=== PATIENT | female | born 1955 | race Hispanic/Latino ===

== ENCOUNTER 2023-11-04 08:13 | Day surgery (SDC) | payer MEDICARE ==
[2023-11-03 15:22] VITALS: BMI 42.2
[2023-11-04 08:58] LABS: Anion Gap 22 mmol/L (10-20); BUN (Urea Nitrogen) 38 mg/dL (9.8-20.1); Calc. Creatinine Clearance 48 mL/min (70-130); Calcium 8.6 mg/dL (7.8-10.44); Carbon Dioxide 11 mmol/L (23-31); Chloride 105 mmol/L (98-107); Estimated GFR 33; Glucose 130 mg/dL (80-115); Potassium 5.2 mmol/L (3.5-5.1); Sodium 133 mmol/L (136-145)
[2023-11-04] MEDS ORDERED: Bupivacaine HCl 0.5%/Epinephrine 1:200,000/PF 30 ml Vial ONE (09:27)
[2023-11-04] MEDS ORDERED: ePHEDrine Sulfate 50 MG/10 ML VIAL ONE (10:04)
[2023-11-04] MEDS ORDERED: PROPOFOL 20 ML ONE (10:04)
[2023-11-04] MEDS ORDERED: Ondansetron PF 4 MG/2 ML Vial ONE ×2 (10:08→11:35)
[2023-11-04] MEDS ORDERED: Dexamethasone 4 mg/ml Vial ONE (10:08)
[2023-11-04] MEDS ORDERED: Lidocaine 2% PF 5 ML VIAL ONE (10:08)
[2023-11-04] MEDS ORDERED: NOREPINEPHRINE 8 MG/250 ML-D5W 0 ML ONE (10:10)
[2023-11-04] MEDS ORDERED: Vasopressin 20 UNITS/ML VIAL ONE (10:10)
[2023-11-04] MEDS ORDERED: CEFAZOLIN 2 GM VIAL ONE (10:14)
== END 2023-11-04 12:50 | disposition home or self-care (01) ==
LOC: CSHSDC 08:13
PROVIDERS: ATTEND Surgery
DX: C22.0 Liver cell carcinoma (principal); I25.10 Atherosclerotic heart disease of native coronary artery without angina pectoris; K74.60 Unspecified cirrhosis of liver; E11.9 Type 2 diabetes mellitus without complications; K21.9 Gastro-esophageal reflux disease without esophagitis; Z95.1 Presence of aortocoronary bypass graft; Z79.84 Long term (current) use of oral hypoglycemic drugs; Z79.899 Other long term (current) drug therapy
CPT/HCPCS: 36561; 71045; 80048; A6258; C1788; J1100; J1642; J2001; J2405; J2704; 36415